=== PATIENT | female | born 2000 | race Caucasian/White ===

== ENCOUNTER → 2018-01-30 | Outpatient (REF) | payer OTHER ==
[2018-01-30 19:29] LABS: CHLAMYDIA DNA AMPLIFICATION NEGATIVE (NEGATIVE); GC DNA AMPLIFICATION NEGATIVE (NEGATIVE)
== END ==
LOC: M LAB REF 16:53
DX: R10.2 Pelvic and perineal pain (principal)

== ENCOUNTER → 2018-05-19 | Outpatient (CLI) | payer OTHER ==
--- NOTE | 2018-05-20 07:31 | REP ---
Clinical: Pelvic and perineal pain . Technique: Transabdominal pelvic ultrasound followed by transvaginal examination for better evaluation of the endometrium and adnexa with color Doppler evaluation of the ovaries. Findings: Bladder is unremarkable and measures 7.0 x 2.8 x 7.1 cm . Anteverted subseptate uterus measures 7.5 x 3.2 x 4.3 cm . The endometrial complex measures 10.0 mm on the right cornua and 12.0 mm on the left cornua. No discrete uterine or endometrial abnormalities are appreciated. Bilateral ovaries are normal in appearance and vascularity without evidence for torsion. Right ovary measures 3.4 x 2.9 x 3.1 cm with 1.9 x 1.8 x 1.8 cm complex partially echogenic lesion ; R I = 0.43 . Left ovary measures 4.6 x 2.8 x 4.4 cm including 2.6 cm physiologic cyst ; R I = 0.76 . No pelvic fluid or adnexal mass lesion . Impression: 1. Complex lesion in the right ovary may reflect dermoid versus complex hemorrhagic cyst. Consider reevaluation in 4-6 weeks to evaluate for possible resolution. 2. Findings to suggest subseptate uterus. Electronically Signed by Hugo Ramos MD 05/20/2018 07:23 A
== END ==
LOC: M RAD 13:17
PROVIDERS: ATTEND Obstetrics & Gynecology
DX: R10.2 Pelvic and perineal pain (principal)

== ENCOUNTER → 2019-12-17 | Outpatient (CLI) | payer OTHER ==
--- NOTE | 2020-01-07 14:41 | SLEEPHOME ---
DATE: 12/17/2019 ORDERED BY: Rivera Andersen MD Diagnostic home sleep testing was performed due to concern for the obstructive sleep apnea syndrome. For testing, a nocturnal T3 respiratory monitoring device was used. Continuous record was made of pulse, oxygen saturation, air flow, chest and abdominal strain, and body position. Nine hours and 59 minutes of data were reviewed. There were 6 hours and 37 minutes marked as time in bed. During the actual marked time in bed, there were 40 respiratory events identified of 10 seconds in duration or greater for a respiratory event index of 6. Events were primarily obstructive though seven mixed and central apneas were identified. Baseline pulse rate 56 beats per minute, pulse rate range 46-97, baseline saturation 96%, saturations fell as low as 83%. Testing was performed in both the supine and non-supine positions. IMPRESSION: Abnormal home sleep testing with repetitive respiratory events, oxygen desaturations to 83%, and a respiratory event index of 6 is consistent with the obstructive sleep apnea syndrome. RECOMMENDATION: The patient should be encouraged to undergo a formal sleep evaluation. [facility]
== END ==
LOC: M SLEEP HO 09:48
PROVIDERS: ATTEND Internal Medicine Cardiovascular Disease
DX: R06.83 Snoring (principal)

== ENCOUNTER → 2024-12-30 | Outpatient (RCR) | LOC: M EMPSKH 12-20 13:27 → M EMPSSV 12-20 13:27 | PROVIDERS: ATTEND Family Medicine | DX: Z20.828 Contact with and (suspected) exposure to other viral communicable diseases (principal) ==